=== PATIENT | female | born 1945 | race Caucasian/White ===

== ENCOUNTER 2017-12-13 22:22 | Emergency (ER) | payer MEDICARE ==
[~2017-12-13] VITALS: Ht 154.9 cm; Wt 102.1 kg
[~2017-12-13 22:22] MED LIST: ALENDRONATE SOD70 MG PO; ALPRAZOLAM0.5 MG PO; ASPIRIN81 MG PO; ATORVASTATIN CA40 MG PO; CALCIUM + VITA1 EACH PO; CEFTIN250 MG PO; CLARITIN10 MG PO; FLOVENT DISKUS50 MCG; LOSARTAN POTASS25 MG PO; MULTIPLE VITAM1 EAC2 PO; NABUMETONE500 MG PO; PAROXETINE HCL20 MG PO; PREDNISONE10 MG; VENLAFAXINE HCL75 M1 PO; VENLAFAXINE HCL75 MG PO; VESICARE10 MG PO; [UNRECOGNIZED DRUG - OTHER]
[2017-12-13] MEDS ORDERED: TRAZODONE HCL50 MG PO (23:05)
[2017-12-13] MEDS ORDERED: GLYCOPYRROLATE1 MG PO (23:05)
[2017-12-13] MEDS ORDERED: PREVACID 24HR15 MG (23:05)
[2017-12-13] MEDS ORDERED: METOPROLOL TART25 MG PO (23:05)
[2017-12-13] MEDS ORDERED: LORAZEPAM 1 MG TAB PO ONE (23:30)
[2017-12-13] MEDS ORDERED: CLONIDINE HCL 0.1 MG TAB PO ONE (23:30)
== END 2017-12-13 23:25 | disposition home or self-care (01) ==
LOC: FSED 22:22
DX: Z04.3 Encounter for examination and observation following other accident (principal); W01.0XXA Fall on same level from slipping, tripping and stumbling without subsequent striking against object, initial encounter; Y92.008 Other place in unspecified non-institutional (private) residence as the place of occurrence of the external cause; I10 Essential (primary) hypertension; F41.1 Generalized anxiety disorder
CPT/HCPCS: 71046; 99283

== ENCOUNTER 2021-02-15 11:43 | Emergency (ER) | payer MEDICARE ==
[~2021-02-15] VITALS: Ht 154.9 cm; Wt 99.1 kg
[~2021-02-15 11:43] MED LIST changes: +GLYCOPYRROLATE1 MG PO; +METOPROLOL TART25 MG PO; +PREVACID 24HR15 MG; +TRAZODONE HCL50 MG PO
[2021-02-15] MEDS ORDERED: CLONIDINE HCL 0.2 MG TAB PO ONE (12:15)
[2021-02-15] MEDS ORDERED: LOSARTAN POTASS50 MG PO (12:28)
[2021-02-15] MEDS ORDERED: METOPROLOL TART50 MG PO (12:28)
[2021-02-15] MEDS ORDERED: CLONIDINE HCL 0.1 MG TAB ONE (12:31)
[2021-02-15] MEDS ORDERED: LOSARTAN POTAS100 MG PO (12:38)
[2021-02-15] MEDS ORDERED: ABILIFY5 MG PO (12:42)
[2021-02-15] MEDS ORDERED: PLAVIX75 MG PO (12:42)
== END 2021-02-15 12:54 | disposition home or self-care (01) ==
LOC: FSED 12:05
DX: I10 Essential (primary) hypertension (principal); H61.22 Impacted cerumen, left ear; E78.5 Hyperlipidemia, unspecified; I48.91 Unspecified atrial fibrillation; F32.9 Major depressive disorder, single episode, unspecified
CPT/HCPCS: 99283

== ENCOUNTER 2022-06-13 10:08 | Emergency (ER) | payer MEDICARE ==
[~2022-06-13] VITALS: Ht 154.9 cm; Wt 104.9 kg
[~2022-06-13 10:08] MED LIST changes: +ABILIFY5 MG PO; +LOSARTAN POTAS100 MG PO; +LOSARTAN POTASS50 MG PO; +METOPROLOL TART50 MG PO; +PLAVIX75 MG PO
[2022-06-13] MEDS ORDERED: OS-CAL 500+D T1 EACH PO (11:02)
[2022-06-13] MEDS ORDERED: CLARITIN10 M4 (11:02)
[2022-06-13] MEDS ORDERED: BENZONATATE200 MG PO (11:48)
== END 2022-06-13 11:52 | disposition home or self-care (01) ==
LOC: FSED 10:57
DX: R05.9 Cough, unspecified (principal); B34.9 Viral infection, unspecified; I10 Essential (primary) hypertension; E78.5 Hyperlipidemia, unspecified; I48.91 Unspecified atrial fibrillation; F41.9 Anxiety disorder, unspecified; Z20.822 Contact with and (suspected) exposure to COVID-19; Z86.73 Personal history of transient ischemic attack (TIA), and cerebral infarction without residual deficits
CPT/HCPCS: 0223U; 36415; 71046; 83518; 87400; 99283

== ENCOUNTER 2024-10-04 16:57 | Emergency (ER) | payer MEDICARE ==
[~2024-10-04] VITALS: Ht 154.9 cm; Wt 104.8 kg
[~2024-10-04 16:57] MED LIST changes: +BENZONATATE200 MG PO; +CLARITIN10 M4; +OS-CAL 500+D T1 EACH PO
[2024-10-04] MEDS ORDERED: ACETAMINOPHEN 325 MG TAB ONE (17:55)
[2024-10-04] MEDS: ONDANSETRON HCL 4 MG ORAL DISINTEGRATING TAB PO ONE (18:37)
[2024-10-04] MEDS: ACETAMINOPHEN 325 MG TAB PO ONE (18:40)
[2024-10-04] MEDS ORDERED: ONDANSETRON ODT4 MG PO (19:00)
[2024-10-04 19:39] VITALS: PULSE 62; RESP 18; TEMP 98.3; O2SAT 98
== END 2024-10-04 19:43 | disposition home or self-care (01) ==
LOC: FSED 17:04
DX: S06.0X0A Concussion without loss of consciousness, initial encounter (principal); W01.0XXA Fall on same level from slipping, tripping and stumbling without subsequent striking against object, initial encounter; Y92.89 Other specified places as the place of occurrence of the external cause; I48.91 Unspecified atrial fibrillation; E78.5 Hyperlipidemia, unspecified; F41.9 Anxiety disorder, unspecified; F32.A Depression, unspecified; Z86.73 Personal history of transient ischemic attack (TIA), and cerebral infarction without residual deficits; F17.210 Nicotine dependence, cigarettes, uncomplicated
CPT/HCPCS: 70450; 72125; 99283; Q0162

== ENCOUNTER 2025-08-09 14:02 | Emergency (ER) | payer MEDICARE ==
[~2025-08-09] VITALS: Ht 154.9 cm; Wt 84.8 kg
[~2025-08-09 14:02] MED LIST changes: +ONDANSETRON ODT4 MG PO
[2025-08-09 14:07] VITALS: PULSE 76; RESP 20; TEMP 97.3; O2SAT 97
[2025-08-09] MEDS ORDERED: GUAIFENESIN AC473 ML PO (15:10)
[2025-08-09] MEDS ORDERED: ROBITUSSIN COU118 M4 PO (15:12)
== END 2025-08-09 15:27 | disposition home or self-care (01) ==
LOC: FSED 14:38
DX: R05.9 Cough, unspecified (principal); J40 Bronchitis, not specified as acute or chronic; I10 Essential (primary) hypertension; E78.5 Hyperlipidemia, unspecified; I48.91 Unspecified atrial fibrillation; F41.9 Anxiety disorder, unspecified; F32.A Depression, unspecified; Z86.73 Personal history of transient ischemic attack (TIA), and cerebral infarction without residual deficits
CPT/HCPCS: 99284